=== PATIENT | male | born 1990 | race Caucasian/White ===

== ENCOUNTER 2017-06-28 23:27 | Emergency (ER) | payer MEDICAID ==
[~2017-06-28] VITALS: Ht 180.3 cm; Wt 85.0 kg
[2017-06-29] MEDS ORDERED: ALBUTEROL SULFATE 2.5 MG/3 ML ONE (00:17)
[2017-06-29] MEDS ORDERED: ALBUTEROL SULFATE 2.5 MG/3 ML NPPB ONE (00:30)
[2017-06-29 01:08] VITALS: BP 120/65
== END 2017-06-29 01:09 | disposition home or self-care (01) ==
LOC: ED 23:59
DX: J45.41 Moderate persistent asthma with (acute) exacerbation (principal); Z90.89 Acquired absence of other organs
CPT/HCPCS: 94640; 99283; J7613

== ENCOUNTER 2018-06-25 07:44 | Emergency (ER) | payer MEDICAID ==
[~2018-06-25] VITALS: Ht 177.8 cm; Wt 85.1 kg
[2018-06-25] MEDS ORDERED: ALBUTEROL SULFATE 2.5 MG/3 ML ONE (08:11)
--- NOTE | 2018-06-25 08:24 | NUR ---
CONTACT WITH PT, 28 YR OLD MALE HERE WITH C/O "ASTHMA" HAS BEEN BOTHERING HIM FOR THE LAST 3 DAYS, "SOB AND COUGH" PT OUT OF HIS INHALER.
[2018-06-25 08:28] VITALS: BP 113/69
[2018-06-25] MEDS ORDERED: ALBU18HF INH (08:28)
[2018-06-25] MEDS ORDERED: ALBUTEROL SULFATE 2.5 MG/3 ML NPPB ONE (08:30)
--- NOTE | 2018-06-25 09:11 | NUR ---
PT IN NO ACUTE DISTRESS. NO IV TO DC. REVIEWED DC INSTRUCTIONS WITH PT. UNDERSTANDING VERBALIZED. PT LEFT AMB, GAIT STEADY.
== END 2018-06-25 09:13 | disposition home or self-care (01) ==
LOC: ED 09:07
DX: J45.31 Mild persistent asthma with (acute) exacerbation (principal)
CPT/HCPCS: 71046; 94640; 99283; J7512; J7613